=== PATIENT | female | born 1970 | race Two or more races ===

== ENCOUNTER 2019-04-24 15:21 | Emergency (ER) | payer OTHER ==
[~2019-04-24] VITALS: Ht 152.4 cm; Wt 61.2 kg
[2019-04-24 15:48] VITALS: BP 135/77
[2019-04-24] MEDS ORDERED: AMOX500C PO (15:57)
--- NOTE | 2019-04-24 15:57 | PHYS DOC ---
Past Medical History Past Medical History: No Pertinent History Past Surgical History: No Surgical History Alcohol Use: None Drug Use: None Adult General Chief Complaint Chief Complaint: FOREIGNBODY EAR HPI HPI Patient is a 49 year old female presents to ED complaining of left ear pain times 4 days. Describes it as uncomfortable. Rates her pain as 4/10. Patient states at nighttime she feels like there are ants walking in and out of her ear. Unsure if she has a foreign body in her ear. States she does not use Q-tips. Denies fever, cough, congestion, chest pain, shortness of breath, headache, dizziness or weakness. Review of Systems Review of Systems Constitutional: Denies fever or chills [] Eyes: Denies change in visual acuity, redness, or eye pain [] HENT: Complains of ear pain. Denies nasal congestion or sore throat [] Respiratory: Denies cough or shortness of breath [] Cardiovascular: No additional information not addressed in HPI [] GI: Denies abdominal pain, nausea, vomiting, bloody stools or diarrhea [] : Denies dysuria or hematuria [] Musculoskeletal: Denies back pain or joint pain [] Integument: Denies rash or skin lesions [] Neurologic: Denies headache, focal weakness or sensory changes [] All other systems were reviewed and found to be within normal limits, except as documented in this note. Allergies Allergies Allergies Coded Allergies Type Severity Reaction Last Updated Verified No Known Drug Allergies 04/24/19 No Physical Exam Physical Exam Constitutional: Well developed, well nourished, no acute distress, non-toxic appearance. [] HENT: Normocephalic, atraumatic, bilateral external ears normal, mild left TM erythema and bulging. No FB. No mastoid tenderness. normal ear canal. oropharynx moist, no oral exudates, nose normal. [] Eyes: PERRLA, EOMI, conjunctiva normal, no discharge. [] Neck: Normal range of motion, no tenderness, supple, no stridor. [] Cardiovascular:Heart rate regular rhythm, no murmur [] Lungs & Thorax: Bilateral breath sounds clear to auscultation Skin: Warm, dry, no erythema, no rash. [] Back: No tenderness, no CVA tenderness. [] Extremities: No tenderness, no cyanosis, no clubbing, ROM intact, no edema. [] Neurologic: Alert and oriented X 3, normal motor function, normal sensory function, no focal deficits noted. [] Psychologic: Affect normal, judgement normal, mood normal. [] Current Patient Data Vital Signs Vital Signs Date Time Temp Pulse Resp B/P (MAP) Pulse Ox O2 Delivery O2 Flow Rate FiO2 04/24/19 15:48 97.6 80 18 135/77 (96) 97 Room Air 97.6 EKG EKG [] Radiology/Procedures Radiology/Procedures [] Course & Med Decision Making Course & Med Decision Making Pertinent Labs and Imaging studies reviewed. (See chart for details) [] Dragon Disclaimer Dragon Disclaimer This electronic medical record was generated, in whole or in part, using a voice recognition dictation system. Departure Departure Impression: Primary Impression: Otitis media Disposition: HOME, SELF-CARE Condition: IMPROVED Referrals: NO PCP (PCP) BELINDA VARGAS MD Patient Instructions: Otitis Media, Adult Scripts Amoxicillin (AMOXICILLIN) 500 Mg Capsule 1 CAP PO TID for 7 Days, #21 CAP Prov: JAMAR SAGASTUME 04/24/19 JMAAR SAGASTUME Apr 24, 2019 15:57
== END 2019-04-24 16:01 | disposition home or self-care (01) ==
LOC: ER 15:21
DX: H66.92 Otitis media, unspecified, left ear (principal)
CPT/HCPCS: 99283

== ENCOUNTER 2019-12-18 10:52 | Emergency (ER) | payer OTHER ==
[~2019-12-18] VITALS: Ht 152.4 cm; Wt 64.0 kg
[~2019-12-18 10:52] MED LIST: AMOX500C PO
--- NOTE | 2019-12-18 12:28 | PHYS DOC ---
Past Medical History Past Medical History: No Pertinent History Past Surgical History: No Surgical History Smoking Status: Never Smoker Alcohol Use: None Drug Use: None General Adult EDM: Chief Complaint: BREAST PAIN/INJURY HPI: HPI: Patient is a 49 year old female who presents with states for the last couple months she has had breast pain after her menstrual periods. She states that she has felt a couple of lumps in bilateral breast. She states while she is on her menstrual her breast do not hurt. 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 Patient states that they just hurt and will not give a quality of pain and does not rate her pain when asked. She states the pain is bearable at this time. She denies fever, chest pain, cough, shortness of breath, discharge from nipples, breast-feeding. Review of Systems: Review of Systems: Integument: Denies rash. Bilateral breast pain. [] Heart Score: Risk Factors: Risk Factors: DM, Current or recent (<one month) smoker, HTN, HLP, family history of CAD, obesity. Risk Scores: Score 0 - 3: 2.5% MACE over next 6 weeks - Discharge Home Score 4 - 6: 20.3% MACE over next 6 weeks - Admit for Clinical Observation Score 7 - 10: 72.7% MACE over next 6 weeks - Early Invasive Strategies Allergies: Allergies: Allergies Coded Allergies Type Severity Reaction Last Updated Verified No Known Drug Allergies 04/24/19 No Physical Exam: PE: Constitutional: Well developed, well nourished, no acute distress, non-toxic appearance. [] HENT: Normocephalic, atraumatic, bilateral external ears normal, oropharynx moist, no oral exudates, nose normal. [] Eyes: PERRLA, EOMI, conjunctiva normal, no discharge. [] Neck: Normal range of motion, no tenderness, supple, no stridor. [] Cardiovascular:Heart rate regular rhythm, no murmur [] Lungs & Thorax: Bilateral breath sounds clear to auscultation [] Abdomen: Bowel sounds normal, soft, no tenderness, no masses, no pulsatile masses. [] Skin: Warm, dry, no erythema, no rash. [] Back: No tenderness, no CVA tenderness. [] Extremities: No tenderness, no cyanosis, no clubbing, ROM intact, no edema. [] Neurologic: Alert and oriented X 3, normal motor function, normal sensory function, no focal deficits noted. [] Psychologic: Affect normal, judgement normal, mood normal. [] Normal Physical Exam EKG: EKG: [] Radiology/Procedures: Radiology/Procedures: [] Course & Med Decision Making: Course & Med Decision Making Pertinent Labs and Imaging studies reviewed. (See chart for details) With breast examination and palpation there are no lumps felt. There was no tenderness with palpation. There is no discharge from nipples. There is no redness or signs of infection or cellulitis. No swelling. She is afebrile. No lymph nodes in axillary's. I have spoken to Dr Stephenson concerning this patints complaints and plan of care who states to have a ultra sound done to rule out abscess. I have spoken to Dr. Norris with radiology and he states that the patient needs to follow-up as outpatient with a mammogram. He states based on her clinical pr esentation and exam that there is no clinical need for emergency room ultrasound of her breast bilaterally. I have told Dr Stephenson. [] Dragon Disclaimer: Dragon Disclaimer: This electronic medical record was generated, in whole or in part, using a voice recognition dictation system. Departure Departure Impression: Primary Impression: Breast pain in female Disposition: 01 HOME, SELF-CARE Condition: STABLE Referrals: NO PCP (PCP) HERNAN KELLER Jr, MD Patient Instructions: Breast Self-Awareness Additional Instructions: Follow with Dr Keller or a primary care provider to get a mammogram scheduled to further examine why you are having breast pain. RODOLFO MCNALLY PHYSICAL SCIENCE AIDE December 18, 2019 12:28
[2019-12-18 14:40] VITALS: BP 159/100
== END 2019-12-18 15:25 | disposition home or self-care (01) ==
LOC: ER 10:52
DX: N64.4 Mastodynia (principal)
CPT/HCPCS: 99281

== ENCOUNTER 2020-04-05 20:17 | Emergency (ER) | payer OTHER ==
[~2020-04-05] VITALS: Ht 157.5 cm; Wt 66.8 kg
--- NOTE | 2020-04-05 21:55 | RAD ---
Acute Abdominal Series: Technique: PA view of the chest and supine and upright views of the abdomen were obtained. History: Pain. Comparison: None. Findings: The heart is borderline enlarged. There are linear opacities in the lung bases. There is air and stool scattered the colon. There is a paucity of small bowel gas. There is no free air. Impression: 1. Nonobstructive bowel gas pattern consistent with mild constipation. 2. Mild basal infiltrates likely discoid atelectasis. Electronically signed by: Roney Marques III, MD (04/05/2020 9:52 PM) [facility]
[2020-04-05] MEDS ORDERED: BISACODYL 5 MG TABLET.DR. PO ONE (22:15)
[2020-04-05] MEDS ORDERED: MAGNESIUM CITRATE 296 ML SOLUTION. PO ONE (22:15)
--- NOTE | 2020-04-05 22:35 | PHYS DOC ---
Past Medical History Past Medical History: No Pertinent History Past Surgical History: No Surgical History Smoking Status: Never Smoker Alcohol Use: None Drug Use: None General Adult EDM: Chief Complaint: CONSTIPATION HPI: HPI: Patient is a 50 year old female who presents the ED today complaining of constipation since Tuesday of this week. Patient reports being seen by a dentist and had dental work, she was sent home with pain medicines which she does not remember the name but after taking the medication she became constipated. Denies any nausea or vomiting. Reports passing gas. She states she tried taking MiraLAX but stopped taking it yesterday because she did not see any results. Patient is Welsh speaking and the daughter is interpreting Review of Systems: Review of Systems: Constitutional: Denies fever or chills. [] Eyes: Denies change in visual acuity. [] HENT: Denies nasal congestion or sore throat. [] Respiratory: Denies cough or shortness of breath. [] Cardiovascular: Denies chest pain or edema. [] GI: Reports constipation. Denies abdominal pain nausea, vomiting, bloody stools or diarrhea. [] : Denies dysuria. [] Musculoskeletal: Denies back pain or joint pain. [] Integument: Denies rash. [] Neurologic: Denies headache, focal weakness or sensory changes. [] Psychiatric: Denies depression or anxiety. [] Heart Score: Risk Factors: Risk Factors: DM, Current or recent (<one month) smoker, HTN, HLP, family history of CAD, obesity. Risk Scores: Score 0 - 3: 2.5% MACE over next 6 weeks - Discharge Home Score 4 - 6: 20.3% MACE over next 6 weeks - Admit for Clinical Observation Score 7 - 10: 72.7% MACE over next 6 weeks - Early Invasive Strategies Current Medications: Current Medications Medications (Trade) Dose Ordered Sig/[facility] Start Time Stop Time Status Last Admin Dose Admin Bisacodyl (Dulcolax Tab) 10 mg 1X ONCE 04/05/20 22:15 04/05/20 22:16 DC 04/05/20 22:17 10 MG Magnesium Citrate (Citroma) 296 ml 1X ONCE 04/05/20 22:15 04/05/20 22:16 DC 04/05/20 22:17 296 ML Allergies: Allergies: Allergies Coded Allergies Type Severity Reaction Last Updated Verified No Known Drug Allergies 04/24/19 No Physical Exam: PE: Constitutional: Well developed, well nourished, no acute distress, non-toxic appearance. [] HENT: Normocephalic, atraumatic, bilateral external ears normal, oropharynx moist, no oral exudates, nose normal. [] Eyes: PERRLA, EOMI, conjunctiva normal, no discharge. [] Neck: Normal range of motion, no tenderness, supple, no stridor. [] Cardiovascular:Heart rate regular rhythm, no murmur [] Lungs & Thorax: Bilateral breath sounds clear to auscultation [] Abdomen: Bowel sounds normal, soft, no tenderness, no masses, no pulsatile masses. [] Skin: Warm, dry, no erythema, no rash. [] Back: No tenderness, no CVA tenderness. [] Extremities: No tenderness, no cyanosis, no clubbing, ROM intact, no edema. [] Neurologic: Alert and oriented X 3, normal motor function, normal sensory function, no focal deficits noted. [] Psychologic: Affect normal, judgement normal, mood normal. [] Current Patient Data: Vital Signs: Vital Signs Date Time Temp Pulse Resp B/P (MAP) Pulse Ox O2 Delivery O2 Flow Rate FiO2 04/05/20 20:32 97.1 80 20 118/83 (95) 97 Room Air 97.1 EKG: EKG: [] Radiology/Procedures: Radiology/Procedures: []PROCEDURE: ACUTE ABDOMEN SERIES Acute Abdominal Series: Technique: PA view of the chest and supine and upright views of the abdomen were obtained. History: Pain. Comparison: None. Findings: The heart is borderline enlarged. There are linear opacities in the lung bases. There is air and stool scattered the colon. There is a paucity of small bowel gas. There is no free air. Impression: 1. Nonobstructive bowel gas pattern consistent with mild constipation. 2. Mild basal infiltrates likely discoid atelectasis. Electronically signed by: Fadumo Marques III, MD (04/05/2020 9:52 PM) [facility] [place] DICTATED and SIGNED BY: FADUMO MARQUES III, MD DATE: 04/05/202151 Course & Med Decision Making: Course & Med Decision Making Pertinent Labs and Imaging studies reviewed. (See chart for details) This is a 50-year-old female patient presenting to the ED today complaining of constipation from what sounds like pain medication she got on Tuesday after having dental work. Acute abdominal series x-rays was noted for constipation. Patient was discharged to home with mag citrate and she was informed not to take the pain medication instead use Tylenol /Motrin, encouraged to increase dietary fiber intake as well as water intake. Stool softener also encouraged Dragon Disclaimer: Dragon Disclaimer: This electronic medical record was generated, in whole or in part, using a voice recognition dictation system. Departure Departure Impression: Primary Impression: Constipation Qualified Codes: K59.03 - Drug induced constipation Disposition: HOME, SELF-CARE Condition: STABLE Referrals: NO PCP (PCP) please follow up next week with your doctor Patient Instructions: Constipation, Adult, [id number] Additional Instructions: You were seen for constipation. Please do not take your pain pills at home. Consider taking Tylenol or Motrin for pain. Increase your dietary fiber as well as water intake. Take MiraLAX or stool softener every day. Take magnesium citrate anytime you are constipated. Follow-up with your own doctor in the course of next week. Justicifation of Admission Dx: Justifications for Admission: Justification of Admission Dx: N/A KYLER CUNNINGHAM APRN Apr 05, 2020 22:35
[2020-04-05 22:45] VITALS: BP 125/84
== END 2020-04-05 22:50 | disposition home or self-care (01) ==
LOC: ER 20:17
DX: K59.03 Drug induced constipation (principal)
CPT/HCPCS: 74022; 99283